=== PATIENT | female | born 1955 | race Caucasian/White ===

== ENCOUNTER 2017-04-24 20:30 | Outpatient (CLI) | payer BC | END 2017-04-24 20:31 | disposition home or self-care (01) | LOC: SLEEPLAB 20:30 | PROVIDERS: ATTEND Internal Medicine Critical Care Medicine | DX: G47.33 Obstructive sleep apnea (adult) (pediatric) (principal); I11.0 Hypertensive heart disease with heart failure; I50.9 Heart failure, unspecified; K21.9 Gastro-esophageal reflux disease without esophagitis; F41.8 Other specified anxiety disorders; G31.84 Mild cognitive impairment of uncertain or unknown etiology; R35.1 Nocturia; R06.83 Snoring; R53.83 Other fatigue | CPT/HCPCS: 95811 ==

== ENCOUNTER 2017-09-27 14:30 | Outpatient (CLI) | payer BC ==
--- NOTE | 2017-09-27 16:25 | MRI ---
BRAIN MRI WITH AND WITHOUT CONTRAST: Date: 09/27/17 HISTORY: Headaches. Cluster headaches. COMPARISON: None. TECHNIQUE: Brain MRI is performed with and without intravenous Gadolinium administration. Multisequential, multi planar imaging is performed. FINDINGS: No hemorrhage on the axial gradient echo sequence. No parenchymal mass, mass effect, or midline shift. Brain volume is age-appropriate. Cortical pimentel-wh ite matter differentiation is preserved. Ventricles and sulci are patent and symmetric. Central arterial flow-voids are maintained. Absent restricted diffusion. T2 and FLAIR white matter hyperintensities due to chronic small vessel ischemic changes are noted. Note is made of a partially empty sella. Adequate aeration of the sinuses and mastoid air cells. Calvarium has a normal T1 marrow signal intensity. Midline brain parenchymal structures are unremarka ble. No pathologic enhancement of the brain parenchyma. IMPRESSION: Unremarkable pre and postcontrast brain MRI. POS: UBALDO
== END 2017-09-27 14:31 | disposition home or self-care (01) ==
LOC: TBSIIMAG 14:30
PROVIDERS: ATTEND Surgery
DX: R51 Headache (principal)
CPT/HCPCS: 70553; 82565

== ENCOUNTER 2017-11-29 19:21 | Emergency (ER) | payer BC | END 2017-11-29 20:16 | disposition home or self-care (01) | LOC: ERS 19:21 | DX: M79.81 Nontraumatic hematoma of soft tissue (principal); E03.9 Hypothyroidism, unspecified; I10 Essential (primary) hypertension; F32.9 Major depressive disorder, single episode, unspecified | CPT/HCPCS: 99284 ==

== ENCOUNTER 2020-09-07 15:06 | Inpatient (IN) | payer BC ==
[~2020-09-07 15:06] MED LIST: Iopamidol-370 76% 500 ML 1 ML ONE
[2020-09-07] MEDS ORDERED: Diltiazem 125 MG/25 ML ONE (15:22)
--- NOTE | 2020-09-07 15:57 | RAD ---
EXAM: Portable chest PROVIDED CLINICAL HISTORY: Palpitations COMPARISON: 06/11/2016 FINDINGS: Cardiac and mediastinal silhouette is within normal limits. No focal consolidation, pleural fluid or pneumothorax evident. IMPRESSION: No evidence for an acute cardiopulmonary process.
[2020-09-07 16:19] LABS: #Eosinphils 0.1 thou/uL (0.0-0.7); #Lymphocytes 1.8 thou/uL (1.20-3.40); #Monocytes 0.6 thou/uL (0.11-0.59); #Neutrophils 4.3 thou/uL (1.40-6.50); %Basophils 0.7 % (0.0-1.0); %Eosinophils 1.6 % (0.0-10.0); %Lymphocytes 25.7 % (21.0-51.0); %Monocytes 9.3 % (0.0-10.0); %Neutrophils 62.7 % (42.0-75.0); Hemoglobin 13.7 g/dL (12.0-16.0); Mean Corpuscular HGB CONC 34.8 g/dL (32.0-36.0); Mean Corpuscular Hemoglobin 30.5 pg (27.0-31.0); Mean Corpuscular Volume 87.6 fL (78.0-98.0); Mean Platelet Volume 8.4 fL (7.4-10.4); Platelet Count 275 thou/uL (130-400); RBC Distribution Width 12.4 % (11.5-14.5); Red Blood Cell (RBC) Count 4.49 mill/uL (4.20-5.40); White Blood Cell (WBC) Count 6.9 thou/uL (4.8-10.8)
[2020-09-07] MEDS ORDERED: Enoxaparin Sodium 100 MG/ML SYRINGE ONE (16:19)
[2020-09-07 16:41] LABS: ALT (SGPT) 20 U/L (8-55); AST (SGOT) 18 U/L (5-34); Albumin 4.3 g/dL (3.4-4.8); Alkaline Phosphatase 66 U/L (40-110); Anion Gap 13 mmol/L (10-20); BUN (Urea Nitrogen) 11 mg/dL (9.8-20.1); Bilirubin, Total 0.3 mg/dL (0.2-1.2); CK (CPK) 49 U/L (29-168); Calc. Creatinine Clearance 0 mL/min (70-130); Calcium 9.4 mg/dL (7.8-10.44); Carbon Dioxide 24 mmol/L (23-31); Chloride 101 mmol/L (98-107); Globulin 3.1 g/dL (2.4-3.5); Glucose 98 mg/dL (80-115); Potassium 4.4 mmol/L (3.5-5.1); Protein, Total 7.4 g/dL (5.8-8.1); Sodium 134 mmol/L (136-145)
--- NOTE | 2020-09-07 17:19 | PDOC.HHP ---
Hospitalist HPI Heart Palpitations History of Present Illness: PCP: Dr. Morales The patient is a 65-year-old female with a past medical history significant for diastolic CHF (secondary to chemotherapy), left breast cancer (chemotherapy 6 years ago), hypothyroidism, hypertension, DAWOOD (on home CPAP), GERD and depression that presents to the emergency department with above complaint. The patient reports having heart palpitations for the past several months. Recently, she wore a 24-hour Holter monitor, which recorded no arrhythmias at that time. She reports that she has the feeling of her heart fluttering several times a month. She reports it mostly comes when she bends over. She reports developing heart palpitations and heart fluttering yesterday afternoon around 4 PM while bending over to pick up man a pot while doing some gardening. She reported some associated shortness of breath and dizziness. She wears a CPAP at home and reports unusually large amount of apneic episodes, reporting 13 episodes per hour. She denies any cough or hemoptysis. She has no history of COPD/asthma. No history of DVT/PE. Her dizziness, she reports is intermittent and feels like she is going to "pass out". She denies any headache, vision changes, difficulty speaking or focal motor deficits to her extremities. She did receive her first Covid vaccination this past Wednesday, otherwise no change in her medications. No recent fever/illness. She denies any chest pain or swelling to her lower extremities. Denies any abdominal pain, nausea, vomiting, diarrhea. Denies any dysuria or hematuria. ED Course: VITAL SIGNS Sat Sep 07, 2020 15:07 BROCK Charles Dannette BP: 136/75, Pulse: 113, Resp: 19, Temp: 98.1 (Oral), Pain: 9, O2 sat: 97 on (Room Air), Time: 09/07/2020 15:07. VITAL SIGNS Sat Sep 07, 2020 15:33 BROCK García Ashleigh BP: 135/85, Pulse: 95, Resp: 16, Pain: 0, O2 sat: 95 on (Room Air), Time: 09/07/2020 15:33. VITAL SIGNS Sat Sep 07, 2020 15:39 BROCK García Ashleigh BP: 118/73, MAP: 88, Pulse: 87, Resp: 16 (Non-Labored), Pain: 0, O2 sat: 95 on (Room Air), Time: 09/07/2020 15:39. VITAL SIGNS Sat Sep 07, 2020 16:43 BROCK García, [facility] BP: 106/68, Pulse: 94, Resp: 16, Pain: 0, O2 sat: 98 on (Room Air), Time: 09/07/2020 16:43. EKG atrial fibrillation with RVR, heart rate 130s CXR no acute process CTA pending. Initial troponin 0.026, BNP 266 PT 12.1, INR 0.9 CMP and CBC unremarkable Lovenox 90 mg Subcutaneous Given 16:27 09/07/2020 dilTIAZem intravenous 5 mg/hr IV Piggy Back Given 15:41 09/07/2020 sodium chloride 0.9 % intravenous 1 L IV Fluid Infusion Given 15:37 09/07/2020 dilTIAZem intravenous 20 mg IV Push Given 15:35 09/07/2020 Allergies/Adverse Reactions: Allergy/AdvReac Type Severity Reaction Status Date / Time ARB-Angiotensin Receptor Allergy Mild Swollen Verified 10/01/19 20:54 Antagonist Lips GURPREET Inhibitors Allergy Verified 10/01/19 20:54 adhesive Allergy Verified 10/01/19 20:54 amlodipine Allergy Verified 10/01/19 20:54 codeine Allergy HALLUCINATI Verified 10/01/19 20:54 ON hydrochlorothiazide Allergy Verified 10/01/19 20:54 hydrocodone Allergy HALLUCINATI Verified 10/01/19 20:54 ON Latex, Natural Rubber Allergy Verified 10/01/19 20:54 monosodium glutamate Allergy Verified 10/01/19 20:54 paclitaxel Allergy Verified 10/01/19 20:54 trastuzumab [From Herceptin] Allergy Verified 10/01/19 20:54 Home Medications: Medication Instructions Recorded Confirmed Type Anastrozole 1 mg PO DAILY 12/27/13 01/25/16 History Carvedilol [Coreg] 25 mg PO BID 12/27/13 01/25/16 History Hydrocortisone 5 mg PO QAM 12/27/13 01/25/16 History Isosorbide Mononitrate [Isosorbide 30 mg PO HS 12/27/13 01/25/16 History Mononitrate ER] Levocetirizine Dihydrochloride 5 mg PO HS 12/27/13 01/25/16 History Pantoprazole [Protonix] 40 mg PO DAILY 12/27/13 01/25/16 History Thyroid [[place] Thyroid] 60 mg PO BID 12/27/13 01/25/16 History Furosemide [Lasix] 40 mg PO DAILY PRN 12/28/13 01/25/16 History Potassium Chloride 20 meq PO DAILY PRN 12/28/13 01/25/16 History Aspirin 325 mg PO BID 01/22/16 01/25/16 History Fluticasone Propionate [Flonase 1 spray EA NARE HS 01/22/16 01/25/16 History Nasal Vance] Ipratropium David [Ipratropium 1 spray EA NARE BID PRN 01/22/16 01/25/16 History David 0.03% Nasal Vance] buPROPion HCl [Wellbutrin] 100 mg PO HS 01/22/16 01/25/16 History guaiFENesin ER [Mucinex] 400 mg PO QID 01/22/16 01/25/16 History hydrALAZINE [Apresoline] 25 mg PO TID PRN 01/22/16 01/25/16 History Ibuprofen 600 mg PO Q6H PRN 01/26/16 01/26/16 History Past History: PMH: Diastolic CHF secondary to chemotherapy, Left breast cancer status post chemotherapy 6 years ago, hypothyroidism, DAWOOD, HTN, cluster headaches, GERD, depression PSX: Left mastectomy, uterine suspension, left knee surgery, tonsillectomy, multiple breast biopsies Social history: Lives at home with her family. No history of smoking heavy alcohol intake or illicit drug use. She is independent. Family history: Contributory for diabetes and hypertension Hospitalist HPI ROS All other systems reviewed; all pertinent +/- noted in HPI/Subj Hospitalist Exam General Appearance: NAD, awake alert. negative: ill appearing Eye: PERRL, anicteric sclera ENT: normocephalic atraumatic, moist mucosa Neck: supple, no lymphadenopathy Heart: no murmur, no gallops, no rubs, normal peripheral pulses, irregular Respiratory: CTAB, no wheezes, no rales, no ronchi, normal chest expansion, no tachypnea Gastrointestinal: soft, non-tender, non-distended, normal bowel sounds, no guard ing, no rigidity Extremities: no cyanosis, no edema Skin: no rashes Neurological: cranial nerve grossly intact, no focal deficits Musculoskeletal: normal tone, normal strength Psychiatric: normal affect, A&O x 3 Hospitalist Results Result Diagrams: 09/07/20 15:18 09/07/20 15:18 Lab results: Laboratory Last Values WBC 6.9 thou/uL (4.8-10.8) 09/07/20 15:18 RBC 4.49 mill/uL (4.20-5.40) 09/07/20 15:18 Hgb 13.7 g/dL (12.0-16.0) 09/07/20 15:18 Hct 39.3 % (36.0-47.0) 09/07/20 15:18 MCV 87.6 fL (78.0-98.0) 09/07/20 15:18 MCH 30.5 pg (27.0-31.0) 09/07/20 15:18 MCHC 34.8 g/dL (32.0-36.0) 09/07/20 15:18 RDW 12.4 % (11.5-14.5) 09/07/20 15:18 Plt Count 275 thou/uL (130-400) 09/07/20 15:18 MPV 8.4 fL (7.4-10.4) 09/07/20 15:18 Neutrophils % 62.7 % (42.0-75.0) 09/07/20 15:18 Lymphocytes % 25.7 % (21.0-51.0) 09/07/20 15:18 Monocytes % 9.3 % (0.0-10.0) 09/07/20 15:18 Eosinophils % 1.6 % (0.0-10.0) 09/07/20 15:18 Basophils % 0.7 % (0.0-1.0) 09/07/20 15:18 Neutrophils # 4.3 thou/uL (1.40-6.50) 09/07/20 15:18 Lymphocytes # 1.8 thou/uL (1.20-3.40) 09/07/20 15:18 Monocytes # 0.6 thou/uL (0.11-0.59) H 09/07/20 15:18 Eosinophils # 0.1 thou/uL (0.0-0.7) 09/07/20 15:18 Basophils # 0.0 thou/uL (0.0-0.2) 09/07/20 15:18 Sodium 134 mmol/L (136-145) L 09/07/20 15:18 Potassium 4.4 mmol/L (3.5-5.1) 09/07/20 15:18 Chloride 101 mmol/L (98-107) 09/07/20 15:18 Carbon Dioxide 24 mmol/L (23-31) 09/07/20 15:18 Anion Gap 13 mmol/L (10-20) 09/07/20 15:18 BUN 11 mg/dL (9.8-20.1) 09/07/20 15:18 Creatinine 0.76 mg/dL (0.6-1.1) 09/07/20 15:18 Estimated GFR (MDRD) 77 09/07/20 15:18 Glucose 98 mg/dL (80-115) 09/07/20 15:18 Calcium 9.4 mg/dL (7.8-10.44) 09/07/20 15:18 Total Bilirubin 0.3 mg/dL (0.2-1.2) 09/07/20 15:18 AST 18 U/L (5-34) 09/07/20 15:18 ALT 20 U/L (8-55) 09/07/20 15:18 Alkaline Phosphatase 66 U/L (40-110) 09/07/20 15:18 Creatine Kinase 49 U/L (29-168) 09/07/20 15:18 Troponin I 0.026 ng/mL (< 0.028) 09/07/20 15:18 B-Natriuretic Peptide 266.7 pg/mL (0-100) H 09/07/20 15:18 Serum Total Protein 7.4 g/dL (5.8-8.1) 09/07/20 15:18 Albumin 4.3 g/dL (3.4-4.8) 09/07/20 15:18 Globulin 3.1 g/dL (2.4-3.5) 09/07/20 15:18 Albumin/Globulin Ratio 1.4 g/dL (1.2-2.2) 09/07/20 15:18 EKG Status: image reviewed by me, report reviewed by me Additional Comments: 12 lead EKG interpreted by Emergency Department Physician at time of study, 12 lead EKG shows, atrial fibrillation with rapid ventricular response, Rate (beats per minute): 134, Rapid ventricular response, Interpretation:, Conduction with, ST segments normal, T waves normal, Mcdaniels normal, Clinical impression:, dysrhythmia - atrial. Chest x-ray Status: report reviewed by me Additional Comments: IMPRESSION: No evidence for an acute cardiopulmonary process CT scan - chest Status: pending Hospitalist H&P A/P (1) Atrial fibrillation with rapid ventricular response Code(s): I48.91 - UNSPECIFIED ATRIAL FIBRILLATION Status: Acute (2) Dyspnea Code(s): R06.00 - DYSPNEA, UNSPECIFIED Status: Acute (3) CHF (congestive heart failure) Code(s): I50.9 - HEART FAILURE, UNSPECIFIED Status: Chronic (4) Breast cancer, left Code(s): C50.912 - MALIGNANT NEOPLASM OF UNSPECIFIED SITE OF LEFT FEMALE BREAST Status: Chronic (5) Hypothyroidism Code(s): E03.9 - HYPOTHYROIDISM, UNSPECIFIED Status: Chronic (6) HTN (hypertension) Code(s): I10 - ESSENTIAL (PRIMARY) HYPERTENSION Status: Chronic (7) Depression Code(s): F32.9 - MAJOR DEPRESSIVE DISORDER, SINGLE EPISODE, UNSPECIFIED Status: Chronic (8) DAWOOD (obstructive sleep apnea) Code(s): G47.33 - OBSTRUCTIVE SLEEP APNEA (ADULT) (PEDIATRIC) Status: Chronic Plan: A patient with diastolic CHF, left breast cancer status post chemotherapy, hypothyroidism, hypertension presents for heart palpitations, dyspnea and dizziness. EKG atrial fibrillation with RVR, heart rate 130s. CXR no acute process. CTA chest pending. Initial troponin 0.026, BNP 266. #Atrial fibrillation with rapid ventricular response New onset. Chads-Vasc score 3 Has bled score 2, moderate risk Given Cardizem 20 mg IVP, drip 5 mg/h in ED with rate control Continue cardizem drip 5mg/hr Continue Lovenox 1 mg/kg Echocardiogram Consult Dr. Yuan Check TSH, FLP, mag level. Trend troponins. #Dyspnea Presented no respiratory distress CXR no acute process Likely related problem #1 #CHF Chronic, diastolic dysfunction. Secondary to chemotherapy. Most recent echocardiogram in [facility] 01/24 EF 55-60%: Mild MR, mild TR Restart home dose Coreg, hydralazine, spironolactone. Order echocardiogram #Breast cancer, left Currently in remission Treated chemotherapy, last treatment 6 years ago #Hypothyroidism Check TSH. Restart home dose [place] Thyroid #HTN Presented normotensive. Restart home dose Coreg, hydralazine, spironolactone #Depression Denies SI/HI Restart home dose Wellbutrin and duloxetine. #DAWOOD Compliant with CPAP at home Set up CPAP with RT at night. No DVT prophylaxis. Protonix for GI prophylaxis. CODE STATUS full code. Discussed the case with attending physician, Dr. Macdonald, who agrees with plan of care.
[2020-09-07 17:23] LABS: INR-International Normal Ratio 0.9; PTT 30.3 sec (22.9-36.1); Prothrombin Time 12.1 sec (12.0-14.7)
[2020-09-07 17:35] LABS: Phosphorus 3.3 mg/dL (2.3-4.7)
--- NOTE | 2020-09-07 18:15 | CT ---
Exam: CT angiogram of the chest HISTORY: Congestive heart failure secondary to chemotherapy. Breast cancer. COMPARISON: 01/25/2016 TECHNIQUE: CT angiogram of the chest is performed in the axial plane. Three-dimensional reformatted i mages are submitted for interpretation FINDINGS: Mediastinum: No mass, lymphadenopathy or hematoma. Heart: Normal size. No significant pericardial fluid. Aorta: Limited evaluation of the aorta due to lack of adequate contrast desiccation. Upper solid abdominal viscera: No abnormality enhancement. Trachea and central bronchi: Patent Pleural spaces: No effusion Lung parenchyma: No mass, or consolidation. Calcified granuloma in the right lower lobe. Pneumothorax: None Osseous structures: There are no lytic or blastic lesions in the osseous structures Additional findings: Findings compatible with left mastectomy. Pulmonary arteries: Adequate contrast opacification pulmonary arterial system to the level of segment al arteries. No filling defect to suggest pulmonary embolism IMPRESSION: 1. No evidence of pulmonary artery embolism to the level of the segmental arteries.
[2020-09-07] MEDS ORDERED: hydrALAZINE 25 MG TAB PO PRN (18:21)
[2020-09-07] MEDS ORDERED: Ondansetron PF 4 MG/2 ML Vial IVP PRN (18:25)
[2020-09-07] MEDS ORDERED: Calcium Carbonate 500 MG ChewTAB PO PRN (18:25)
[2020-09-07] MEDS ORDERED: Ondansetron ODT 4 MG TAB PO PRN (18:25)
[2020-09-07] MEDS ORDERED: Acetaminophen 325 MG TAB PO PRN (18:25)
[2020-09-07] MEDS ORDERED: Diltiazem 125 MG in Sodium Chloride 0.9% 100 ML IVPB SCH (19:30)
[2020-09-07] MEDS ORDERED: Magnesium 2 GM/50 ML 2 GM in Premix Bag 1 BAG IVPB SCH (19:30)
[2020-09-07] MEDS ORDERED: Potassium Bicarbonate/Cit Ac 20 MEQ TAB PO PRN (20:37)
[2020-09-07 20:44] LABS: Troponin I Less than 0.010 ng/mL (< 0.028)
[2020-09-07] MEDS ORDERED: Thyroid 60 MG TAB PO SCH (21:00)
[2020-09-07] MEDS ORDERED: buPROPion HCl 100 MG TAB PO SCH (21:00)
[2020-09-07] MEDS: Carvedilol 25 MG TAB PO SCH (22:38)
[2020-09-07 23:07] LABS: Troponin I 0.018 ng/mL (< 0.028)
[2020-09-07] MEDS ORDERED: Spironolactone 25 MG TAB PO PRN (23:35)
[2020-09-07 23:39] VITALS: BMI 30.2
[2020-09-07] MEDS ORDERED: Enoxaparin Sodium 100 MG/ML SYRINGE SC SCH (23:59)
[2020-09-08 01:38] LABS: SARS-CoV-2 PCR by NAA Not Detected (NotDetected)
[2020-09-08] MEDS ORDERED: Enoxaparin Sodium 100 MG/ML SYRINGE SC SCH (04:00)
[2020-09-08 07:20] LABS: #Eosinphils 0.1 thou/uL (0.0-0.7); #Lymphocytes 1.9 thou/uL (1.20-3.40); #Monocytes 0.5 thou/uL (0.11-0.59); #Neutrophils 2.1 thou/uL (1.40-6.50); %Basophils 0.5 % (0.0-1.0); %Eosinophils 2.4 % (0.0-10.0); %Lymphocytes 41.8 % (21.0-51.0); %Monocytes 10.3 % (0.0-10.0); %Neutrophils 45.1 % (42.0-75.0); Hemoglobin 12.8 g/dL (12.0-16.0); Mean Corpuscular HGB CONC 33.8 g/dL (32.0-36.0); Mean Corpuscular Hemoglobin 29.6 pg (27.0-31.0); Mean Corpuscular Volume 87.7 fL (78.0-98.0); Mean Platelet Volume 8.1 fL (7.4-10.4); Platelet Count 221 thou/uL (130-400); RBC Distribution Width 12.4 % (11.5-14.5); Red Blood Cell (RBC) Count 4.31 mill/uL (4.20-5.40); White Blood Cell (WBC) Count 4.6 thou/uL (4.8-10.8)
[2020-09-08 07:32] LABS: Anion Gap 11 mmol/L (10-20); BUN (Urea Nitrogen) 11 mg/dL (9.8-20.1); Calc. Creatinine Clearance 108 mL/min (70-130); Calcium 9.1 mg/dL (7.8-10.44); Carbon Dioxide 27 mmol/L (23-31); Cardiac Risk 3.6 (Less than 4.5); Chloride 107 mmol/L (98-107); Cholesterol 131 mg/dl (< 200 Desired); Glucose 112 mg/dL (80-115); HDL Cholesterol 36 mg/dL (>60 Neg Risk); LDL Cholesterol, Calculated 72 mg/dL; Potassium 3.8 mmol/L (3.5-5.1); Sodium 141 mmol/L (136-145); Triglycerides 117 mg/dL (Less than 150)
[2020-09-08] MEDS ORDERED: Loratadine 10 MG TAB PO PRN (08:18)
[2020-09-08] MEDS ORDERED: Zolpidem Tartrate 5 MG TAB PO PRN (08:18)
[2020-09-08] MEDS ORDERED: GUAIFENESIN SF SOLN 200 MG/10 ML UDCUP PO PRN (08:18)
[2020-09-08] MEDS ORDERED: Cepastat Lozenges 1 LOZ PO PRN (08:18)
[2020-09-08] MEDS ORDERED: Senokot S 8.6-50 MG TAB PO PRN (08:18)
[2020-09-08] MEDS ORDERED: Loperamide HCl 2 MG CAP PO PRN (08:18)
[2020-09-08] MEDS ORDERED: Bisacodyl 5 MG TAB PO PRN (08:18)
[2020-09-08] MEDS ORDERED: Sodium Chloride 0.65% Nasal 44 ML BOT EA NARE PRN (08:18)
[2020-09-08] MEDS ORDERED: Labetalol HCl 100 MG/20 ML VIAL SLOW IVP PRN (08:18)
[2020-09-08 08:52] LABS: Free T4 (Free Thyroxine) 0.97 ng/dL (0.70-1.48)
[2020-09-08] MEDS ORDERED: Aspirin Chewable 81 MG TAB PO SCH (09:00)
[2020-09-08] MEDS ORDERED: Thyroid 30 MG TAB PO SCH (09:00)
[2020-09-08] MEDS: Aspirin 81 mg Enteric Coated Tablet PO SCH (10:00)
[2020-09-08] MEDS: DULoxetine 30 MG CAP PO SCH (10:01)
[2020-09-08] MEDS: Carvedilol 25 MG TAB PO SCH ×2 (10:01→22:06)
[2020-09-08] MEDS: Hydrocortisone 10 mg Tablet PO SCH (10:02)
[2020-09-08] MEDS: Ipratropium Bromide 0.03% Nasal Inhaler 30 ml Bottle EA NARE SCH ×2 (10:04→22:10)
[2020-09-08] MEDS ORDERED: buPROPion HCl 100 MG TAB PO SCH (11:00)
--- NOTE | 2020-09-08 11:34 | PDOC.HOSPP ---
- Subjective Encounter Date: 09/08/20 Encounter Time: 09:40 Subjective: Patient seen and examined. No new complaints. No overnight events - Objective Vital Signs & Weight: Vital Signs (12 hours) Temp Pulse Resp BP BP BP Pulse Ox 09/08/20 11:15 97.8 F 95 21 H 117/66 97 09/08/20 07:25 97.8 F 84 20 97/58 L 96 09/08/20 04:00 98.6 F 101 H 24 H 101/57 L 97 09/08/20 00:46 96 Weight Weight 201 lb 1.6 oz I&O: 09/07/20 09/08/20 09/09/20 06:59 06:59 06:59 Intake Total 318.4 Output Total 1200 Balance -881.6 Result Diagrams: 09/08/20 06:41 09/08/20 06:41 EKG Reviewed by me: Yes Hospitalist ROS - Review of Systems ENT: denies: ear pain, ear discharge, nose pain, nose discharge, nose congestion, mouth pain, mouth swelling, throat pain, throat swelling, other Respiratory: denies: cough, dry, shortness of breath, hemoptysis, SOB with excertion, pleuritic pain, sputum, wheezing, other Cardiovascular: denies: chest pain, palpitations, orthopnea, paroxysmal noc. dyspnea, edema, light headedness, other Gastrointestinal: denies: nausea, vomiting, abdominal pain, diarrhea, constipation, melena, hematochezia, other Genitourinary: denies: dysuria, frequency, incontinence, hematuria, retention, other Musculoskeletal: denies: neck pain, shoulder pain, arm pain, back pain, hand pain, leg pain, foot pain, other - Medication Medications: Active Medications Generic Name Dose Route Start Last Admin Trade Name Freq PRN Reason Stop Dose Admin Aspirin 81 mg 09/08/20 09:00 09/08/20 10:00 Aspirin 81 Mg Enteric Coated Tablet PO 81 mg DAILY KELLEE Administration Calcium Carbonate 1,000 mg 09/07/20 18:25 09/07/20 23:56 Calcium Carbonate 500 Mg Chewtab PO 1,000 mg Q4H PRN Administration Heartburn or Indigestion Carvedilol 25 mg 09/07/20 21:00 09/08/20 10:01 Carvedilol 25 Mg Tab PO 25 mg BID KELLEE Administration Duloxetine HCl 30 mg 09/08/20 09:00 09/08/20 10:01 Duloxetine 30 Mg Cap PO 30 mg DAILY KELLEE Administration Hydrocortisone 2.5 mg 09/08/20 09:00 09/08/20 10:02 Hydrocortisone 10 Mg Tablet PO 2.5 mg QAM KELLEE Administration Ipratropium [place] 0 ml 09/08/20 09:00 09/08/20 10:04 Ipratropium [place] 0.03% Nasal Inhaler 30 Ml Bottle EA NARE 4 spr BID KELLEE Administration Pantoprazole Sodium 40 mg 09/08/20 09:00 09/08/20 10:04 Pantoprazole 40 Mg Tab PO 40 mg DAILY KELLEE Administration Hospitalist Exam Vitals: Vital Signs (12 hours) Temp Pulse Resp BP BP BP Pulse Ox 09/08/20 11:15 97.8 F 95 21 H 117/66 97 09/08/20 07:25 97.8 F 84 20 97/58 L 96 09/08/20 04:00 98.6 F 101 H 24 H 101/57 L 97 09/08/20 00:46 96 Weight Weight 201 lb 1.6 oz General Appearance: NAD, awake alert Eye: PERRL, anicteric sclera ENT: normocephalic atraumatic, no oropharyngeal lesions Neck: symmetric, no JVD, no thyromegaly Heart: no murmur, no gallops, no rubs, irregular Respiratory: no wheezes, no rales, no ronchi Gastrointestinal: soft, non-tender, non-distended, normal bowel sounds Gastrointestinal - other findings: Obesity noted Extremities: no clubbing, no edema Skin: normal turgor, no lesions Neurological: no focal deficits Musculoskeletal: normal tone, normal strength Psychiatric: normal affect, normal behavior Hosp A/P (1) Atrial fibrillation with rapid ventricular response Code(s): I48.91 - UNSPECIFIED ATRIAL FIBRILLATION Status: Acute (2) Breast cancer, left Code(s): C50.912 - MALIGNANT NEOPLASM OF UNSPECIFIED SITE OF LEFT FEMALE BREAST Status: Chronic (3) HTN (hypertension) Code(s): I10 - ESSENTIAL (PRIMARY) HYPERTENSION Status: Chronic (4) Hypothyroidism Code(s): E03.9 - HYPOTHYROIDISM, UNSPECIFIED Status: Chronic (5) DAWOOD (obstructive sleep apnea) Code(s): G47.33 - OBSTRUCTIVE SLEEP APNEA (ADULT) (PEDIATRIC) Status: Chronic (6) Anxiety and depression Code(s): F41.9 - ANXIETY DISORDER, UNSPECIFIED; F32.9 - MAJOR DEPRESSIVE DISORDER, SINGLE EPISODE, UNSPECIFIED Status: Chronic (7) Obesity (BMI 30-39.9) Code(s): E66.9 - OBESITY, UNSPECIFIED Status: Chronic (8) CHF (congestive heart failure) Code(s): I50.9 - HEART FAILURE, UNSPECIFIED Status: Chronic Qualifiers: Heart failure type: diastolic Heart failure chronicity: chronic Qualified Code(s): I50.32 - Chronic diastolic (congestive) heart failure - Plan old records reviewed/req Continue Cardizem drip, currently rate is under control, Continue Lovenox 1 mg/kg, long-term anticoagulation will defer to cardiology Continue aspirin I have reconciled her home medication Echocardiography done and result is pending We will repeat labs tomorrow Patient has low TSH but her free T3 and free T4 normal, will hold on [place] Thyroid for now while in hospital,
--- NOTE | 2020-09-08 17:44 | CON ---
DATE OF CONSULTATION: 09/08/2020 REASON FOR CONSULTATION: Atrial fibrillation with RVR. PRIMARY BIRD CAGE ASSEMBLER: Grayson Yuan MD HISTORY OF PRESENT ILLNESS: Ms. Recinos is a very pleasant 65-year-old white female, who comes to the hospital for palpitations. She was seen in the ER for this and was found to be in atrial fibrillation and RVR. She was started on a diltiazem drip. She has been better rate control since, but she remains in atrial fibrillation. 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 She has had a left breast mastectomy from this. She had normalization of her EF. It was as low as 40%. She otherwise has no other issues at this time. PAST MEDICAL HISTORY: 1. History of systolic dysfunction secondary to chemotherapy with normalized EF. 2. Left breast carcinoma, status post mastectomy. 3. Hypothyroidism. 4. Sleep apnea. 5. Hypertension. 6. Cluster headaches. 7. GERD. 8. Anxiety and depression. PAST SURGICAL HISTORY: 1. Left mastectomy. 2. Uterine suspension. 3. Left knee surgery. 4. Tonsillectomy. 5. Multiple breast biopsies. OUTPATIENT MEDICATIONS: 1. Anastrozole. 2. Carvedilol 25 mg b.i.d. 3. Hydrocortisone. 4. Imdur 30 mg at bedtime. 5. Levocetirizine 5 mg at bedtime. 6. Protonix 40 mg a day. 7. [place] thyroid 60 mg b.i.d. 8. Lasix 40 mg as needed. 9. Potassium chloride 20 mEq as needed with Lasix. 10. Aspirin 325 a day. 11. Flonase nasal spray. 12. Ipratropium bromide nasal spray. 13. Wellbutrin. 14. Guaifenesin. 15. Hydralazine 25 mg p.o. t.i.d. p.r.n. for hypertension. 16. Ibuprofen p.r.n. ALLERGIES: 1. ARBS, SWOLLEN LIPS. 2. GURPREET INHIBITORS. 3. ADHESIVE TAPE. 4. AMLODIPINE. 5. CODEINE, HALLUCINATIONS. 6. HYDROCHLOROTHIAZIDE. 7. HYDROCODONE, HALLUCINATIONS. 8. LATEX. 9. MONOSODIUM GLUTAMATE. 10. PACLITAXEL. 11. TRASTUZUMAB. SOCIAL HISTORY: No alcohol, tobacco, or drugs. FAMILY HISTORY: Noncontributory. REVIEW OF SYSTEMS: A 12-point review of systems was done and was all negative unless in the history of present illness. PHYSICAL EXAMINATION: VITAL SIGNS: Temperature 97.8, pulse 95, respiratory rate 21, saturating 97% on room air, blood pressure 117/66. GENERAL: Awake, alert, oriented x3. No distress. HEENT: Normocephalic, atraumatic. NECK: Supple. LUNGS: Clear. CARDIOVASCULAR: Irregularly irregular heart rate in the upper 90s, low 100s. No murmurs or rubs. ABDOMEN: Soft. Positive bowel sounds. EXTREMITIES: No edema. SKIN: Warm and dry. LABORATORY AND DIAGNOSTIC DATA: Laboratory work was reviewed. White count of 6, hemoglobin of 13, hematocrit of 39, platelet count of 275. Coags were unremarkable. Chemistries were unremarkable. Troponins were negative x3. TSH was low at 0.004, but free T3 was 3.15 and free T4 was 0.97, which were both considered to be within normal limits. COVID-19 PCR serology was not detected. CT of the chest showed no evidence of pulmonary embolism with no mass or consolidation in the lung parenchyma. Echocardiogram done earlier today showed an EF of 50% to 55%, in atrial fibrillation with moderately dilated left atrium. ASSESSMENT: 1. Paroxysmal atrial fibrillation. 2. History of nonischemic cardiomyopathy with normalized EF. 3. History of breast cancer, in remission. 4. Hypothyroidism with what appears to be adequate levels. PLAN: 1. We will start her on flecainide for antiarrhythmic therapy at 50 mg twice a day. We will continue full dose Lovenox and will switch her to Eliquis at 5 mg twice a day tomorrow. 2. We will plan on doing a [place] cardioversion tomorrow morning. Thank you for letting us to participate in the care of your patient. We will follow. Job ID: [id number]
[2020-09-08] MEDS ORDERED: Thyroid 60 MG TAB PO SCH (21:00)
[2020-09-08] MEDS: Enoxaparin Sodium 100 MG/ML SYRINGE SC SCH (22:06)
[2020-09-08] MEDS: Flecainide 50 MG TAB PO SCH (22:06)
[2020-09-09 04:39] LABS: #Eosinphils 0.2 thou/uL (0.0-0.7); #Lymphocytes 2.1 thou/uL (1.20-3.40); #Monocytes 0.6 thou/uL (0.11-0.59); #Neutrophils 2.9 thou/uL (1.40-6.50); %Basophils 0.5 % (0.0-1.0); %Lymphocytes 36.2 % (21.0-51.0); %Monocytes 10.1 % (0.0-10.0); %Neutrophils 50.1 % (42.0-75.0); Hemoglobin 12.7 g/dL (12.0-16.0); Mean Corpuscular HGB CONC 33.3 g/dL (32.0-36.0); Mean Corpuscular Hemoglobin 29.2 pg (27.0-31.0); Mean Corpuscular Volume 87.8 fL (78.0-98.0); Mean Platelet Volume 8.3 fL (7.4-10.4); Platelet Count 222 thou/uL (130-400); RBC Distribution Width 12.3 % (11.5-14.5); Red Blood Cell (RBC) Count 4.36 mill/uL (4.20-5.40); White Blood Cell (WBC) Count 5.8 thou/uL (4.8-10.8)
[2020-09-09 04:56] LABS: Anion Gap 12 mmol/L (10-20); BUN (Urea Nitrogen) 11 mg/dL (9.8-20.1); Calc. Creatinine Clearance 109 mL/min (70-130); Carbon Dioxide 27 mmol/L (23-31); Chloride 106 mmol/L (98-107); Glucose 109 mg/dL (80-115); Potassium 4.3 mmol/L (3.5-5.1); Sodium 141 mmol/L (136-145)
[2020-09-09] MEDS: Ipratropium Bromide 0.03% Nasal Inhaler 30 ml Bottle EA NARE SCH ×2 (06:06→17:20)
[2020-09-09] MEDS: Carvedilol 25 MG TAB PO SCH ×2 (09:34→20:22)
[2020-09-09] MEDS: buPROPion HCl 100 MG TAB PO SCH (09:34)
[2020-09-09] MEDS: Aspirin 81 mg Enteric Coated Tablet PO SCH (09:34)
[2020-09-09] MEDS: DULoxetine 30 MG CAP PO SCH (09:35)
[2020-09-09] MEDS: Enoxaparin Sodium 100 MG/ML SYRINGE SC SCH ×2 (09:35→20:21)
[2020-09-09] MEDS: Flecainide 50 MG TAB PO SCH ×2 (09:36→20:22)
[2020-09-09] MEDS: Hydrocortisone 10 mg Tablet PO SCH (09:36)
[2020-09-09] MEDS ORDERED: PROPOFOL 40 ML ONE (10:42)
--- NOTE | 2020-09-09 13:28 | PDOC.HOSPP ---
- Subjective Encounter Date: 09/09/20 Encounter Time: 11:00 Subjective: Patient seen and examined. No new complaints. No overnight events - Objective Vital Signs & Weight: Vital Signs (12 hours) Temp Pulse Resp BP BP BP Pulse Ox 09/09/20 11:45 97.6 F 72 20 121/81 98 09/09/20 07:10 97.6 F 87 20 105/58 L 98 09/09/20 03:23 97.8 F 92 20 94/57 L 98 Weight Weight 195 lb 4.8 oz I&O: 09/08/20 09/09/20 09/10/20 06:59 06:59 06:59 Intake Total 318.4 1446.7 Output Total 1200 1800 Balance -881.6 -353.3 Result Diagrams: 09/09/20 04:11 09/09/20 04:11 EKG Reviewed by me: Yes Hospitalist ROS - Review of Systems ENT: denies: ear pain, ear discharge, nose pain, nose discharge, nose congestion, mouth pain, mouth swelling, throat pain, throat swelling, other Respiratory: denies: cough, dry, shortness of breath, hemoptysis, SOB with excertion, pleuritic pain, sputum, wheezing, other Cardiovascular: denies: chest pain, palpitations, orthopnea, paroxysmal noc. dyspnea, edema, light headedness, other Gastrointestinal: denies: nausea, vomiting, abdominal pain, diarrhea, constipation, melena, hematochezia, other Genitourinary: denies: dysuria, frequency, incontinence, hematuria, retention, other - Medication Medications: Active Medications Generic Name Dose Route Start Last Admin Trade Name Andraeq PRN Reason Stop Dose Admin Aspirin 81 mg 09/08/20 09:00 09/09/20 09:34 Aspirin 81 Mg Enteric Coated Tablet PO 81 mg DAILY KELLEE Administration Bupropion HCl 100 mg 09/09/20 09:00 09/09/20 09:34 Bupropion Hcl 100 Mg Tab PO 100 mg QAM KELLEE Administration Calcium Carbonate 1,000 mg 09/07/20 18:25 09/07/20 23:56 Calcium Carbonate 500 Mg Chewtab PO 1,000 mg Q4H PRN Administration Heartburn or Indigestion Carvedilol 25 mg 09/07/20 21:00 09/09/20 09:34 Carvedilol 25 Mg Tab PO 25 mg BID KELLEE Administration Duloxetine HCl 30 mg 09/08/20 09:00 09/09/20 09:35 Duloxetine 30 Mg Cap PO 30 mg DAILY KELLEE Administration Enoxaparin Sodium 90 mg 09/08/20 21:00 09/09/20 09:35 Enoxaparin Sodium 100 Mg/Ml Syringe SC 90 mg 0900,2100 KELLEE Administration Flecainide Acetate 50 mg 09/08/20 21:00 09/09/20 09:36 Flecainide 50 Mg Tab PO 50 mg Q12HR KELLEE Administration Hydrocortisone 2.5 mg 09/08/20 09:00 09/09/20 09:36 Hydrocortisone 10 Mg Tablet PO 2.5 mg QAM KELLEE Administration Diltiazem HCl 125 mg/ Sodium 125 mls @ 5 mls/hr 09/07/20 19:30 09/08/20 16:56 Chloride IVPB 125 mls INF KELLEE Administration Protocol 5 MG/HR Ipratropium [place] 0 ml 09/08/20 09:00 09/09/20 06:06 Ipratropium [place] 0.03% Nasal Inhaler 30 Ml Bottle EA NARE 4 spr BID KELLEE Administration Pantoprazole Sodium 40 mg 09/08/20 09:00 09/09/20 09:37 Pantoprazole 40 Mg Tab PO 40 mg DAILY KELLEE Administration Hospitalist Exam Vitals: Vital Signs (12 hours) Temp Pulse Resp BP BP BP Pulse Ox 09/09/20 11:45 97.6 F 72 20 121/81 98 09/09/20 07:10 97.6 F 87 20 105/58 L 98 09/09/20 03:23 97.8 F 92 20 94/57 L 98 Weight Weight 195 lb 4.8 oz General Appearance: NAD, awake alert Eye: PERRL, anicteric sclera ENT: normocephalic atraumatic, no oropharyngeal lesions Neck: supple, symmetric, no JVD, no thyromegaly Heart: no murmur, no gallops, no rubs Respiratory: no wheezes, no rales, no ronchi Gastrointestinal: soft, non-tender, non-distended, normal bowel sounds Extremities: no cyanosis, no clubbing Skin: normal turgor, no lesions Neurological: no focal deficits Musculoskeletal: normal tone, normal strength Psychiatric: normal affect, normal behavior Hosp A/P (1) Atrial fibrillation with rapid ventricular response Code(s): I48.91 - UNSPECIFIED ATRIAL FIBRILLATION Status: Acute (2) Breast cancer, left Code(s): C50.912 - MALIGNANT NEOPLASM OF UNSPECIFIED SITE OF LEFT FEMALE BREAST Status: Chronic (3) HTN (hypertension) Code(s): I10 - ESSENTIAL (PRIMARY) HYPERTENSION Status: Chronic (4) Hypothyroidism Code(s): E03.9 - HYPOTHYROIDISM, UNSPECIFIED Status: Chronic (5) [place] (obstructive sleep apnea) Code(s): G47.33 - OBSTRUCTIVE SLEEP APNEA (ADULT) (PEDIATRIC) Status: Chronic (6) Anxiety and depression Code(s): F41.9 - ANXIETY DISORDER, UNSPECIFIED; F32.9 - MAJOR DEPRESSIVE DISORDER, SINGLE EPISODE, UNSPECIFIED Status: Chronic (7) Obesity (BMI 30-39.9) Code(s): E66.9 - OBESITY, UNSPECIFIED Status: Chronic (8) CHF (congestive heart failure) Code(s): I50.9 - HEART FAILURE, UNSPECIFIED Status: Chronic Qualifiers: Heart failure type: diastolic Heart failure chronicity: chronic Qualified Code(s): I50.32 - Chronic diastolic (congestive) heart failure - Plan old records reviewed/req Cardiology recommendation appreciated, Continue Lovenox Plan for [place] and cardioversion On discharge Eliquis Flecainide We will monitor
--- NOTE | 2020-09-09 14:00 | PDOC.DS.DS ---
Provider Date of Admission: 09/07/20 18:20 Date of Discharge: 09/10/20 Admitting Provider: Anita Stallings MD Consultations: Cardiology Primary Care Physician: Clay Morales, Course Hospital Course: Patient was admitted on September 07, 2020, on admission patient had chest x-ray which showed no acute cardiopulmonary process, CT angiography negative for pulmonary embolism, patient had A. fib with RVR, echocardiography was done which showed EF 50 to 55%, patient was treated with Cardizem drip, cardiology was consulted, cardiology recommended to do cardioversion, patient underwent card ioversion, cardiology recommended to change medication to flecainide 50 mg twice daily, hydralazine reduced to 10 mg 3 times daily, patient will continue Eliquis and other medication, she will follow up with cardiology within a week. Cardiology cleared her for discharge, patient also wants to go home today. All new medication prescription given to her and sent to pharmacy. Resuscitation Status: 09/07/20 18:25 Resuscitation Status Routine Co-Sign Provider: Resuscitation Status: FULL: Full Resuscitation Discussed with: patient Lab Results: 09/09/20 04:11 09/09/20 04:11 Abnormal Lab Results - Last 48 hrs 09/07/20 15:18: B-Natriuretic Peptide 266.7 H 09/07/20 15:18: Monocytes # 0.6 H 09/07/20 15:18: Sodium 134 L 09/07/20 15:18: TSH 3rd Generation 0.0041 L 09/08/20 06:41: WBC 4.6 L, Monocytes % 10.3 H 09/09/20 04:11: Monocytes % 10.1 H, Monocytes # 0.6 H Vitals: Vital Signs (12 hours) Temp Pulse Resp BP BP BP Pulse Ox 09/09/20 11:45 97.6 F 72 20 121/81 98 09/09/20 07:10 97.6 F 87 20 105/58 L 98 09/09/20 03:23 97.8 F 92 20 94/57 L 98 Weight Weight 195 lb 4.8 oz Physical Exam: The patient was seen and examined on the day of discharge. General Appearance: NAD, awake alert Eye: PERRL, anicteric sclera ENT: normocephalic atraumatic, no oropharyngeal lesions Neck: supple, symmetric, no JVD, no thyromegaly Respiratory: no wheezes, no rales, no ronchi Cardiovascular: RRR, no murmur, no gallops, no rubs Gastrointestinal: soft, non-tender, non-distended, normal bowel sounds Extremities: no cyanosis, no clubbing, no edema Skin: normal turgor, no lesions Neurological: no focal deficits Musculoskeletal: normal tone, normal strength PSYCH: normal affect, normal behavior Problem (1) Atrial fibrillation with rapid ventricular response Code(s): I48.91 - UNSPECIFIED ATRIAL FIBRILLATION Status: Acute (2) Breast cancer, left Code(s): C50.912 - MALIGNANT NEOPLASM OF UNSPECIFIED SITE OF LEFT FEMALE BREAST Status: Chronic (3) HTN (hypertension) Code(s): I10 - ESSENTIAL (PRIMARY) HYPERTENSION Status: Chronic (4) Hypothyroidism Code(s): E03.9 - HYPOTHYROIDISM, UNSPECIFIED Status: Chronic (5) DAWOOD (obstructive sleep apnea) Code(s): G47.33 - OBSTRUCTIVE SLEEP APNEA (ADULT) (PEDIATRIC) Status: Chronic (6) Anxiety and depression Code(s): F41.9 - ANXIETY DISORDER, UNSPECIFIED; F32.9 - MAJOR DEPRESSIVE DISORDER, SINGLE EPISODE, UNSPECIFIED Status: Chronic (7) Obesity (BMI 30-39.9) Code(s): E66.9 - OBESITY, UNSPECIFIED Status: Chronic (8) CHF (congestive heart failure) Code(s): I50.9 - HEART FAILURE, UNSPECIFIED Status: Chronic Qualifiers: Heart failure type: diastolic Heart failure chronicity: chronic Qualified Code(s): I50.32 - Chronic diastolic (congestive) heart failure Plan Prescriptions: Flecainide [Tambocor] 50 mg PO Q12HR #60 tab hydrALAZINE [Apresoline] 10 mg PO TID #90 tab Apixaban [Eliquis] 5 mg PO BID #60 tablet Home Medications: Medication Instructions Recorded Confirmed Type Carvedilol [Coreg] 25 mg PO BID 12/27/13 09/07/20 History Hydrocortisone 2.5 mg PO QAM 12/27/13 09/07/20 History Pantoprazole [Protonix] 40 mg PO DAILY 12/27/13 09/07/20 History Aspirin 81 mg PO DAILY 01/22/16 09/07/20 History Ipratropium [place] [Ipratropium 2 spray EA NARE BID 01/22/16 09/07/20 History [place] 0.03% Nasal [place]] buPROPion HCl [Wellbutrin] 150 mg PO DAILY 01/22/16 09/07/20 History guaiFENesin ER [Mucinex] 400 mg PO BID PRN 01/22/16 09/07/20 History DULoxetine HCl [Cymbalta] 30 mg PO ASDIR 09/07/20 09/07/20 History Spironolactone [Aldactone] 25 mg PO PRN PRN 09/07/20 09/07/20 History Thyroid,Pork [[place] Thyroid] 60 mg PO HS 09/07/20 09/07/20 History Thyroid,Pork [[place] Thyroid] 90 mg PO DAILY 09/07/20 09/07/20 History Apixaban [Eliquis] 5 mg PO BID #60 tablet 09/09/20 Rx Flecainide [Tambocor] 50 mg PO Q12HR #60 tab 09/09/20 Rx hydrALAZINE [Apresoline] 10 mg PO TID #90 tab 09/09/20 Rx Allergies: ARB-Angiotensin Receptor Antagonist Allergy (Mild, Verified 09/07/20 21:29) Swollen Lips GURPREET Inhibitors Allergy (Verified 09/08/20 13:58) Swollen Lips PER ER ORDER adhesive Allergy (Verified 09/07/20 21:29) amlodipine Allergy (Verified 09/07/20 21:29) codeine Allergy (Verified 09/07/20 21:29) HALLUCINATION hydrochlorothiazide Allergy (Verified 09/07/20 21:29) hydrocodone Allergy (Verified 09/07/20 21:29) HALLUCINATION Latex, Natural Rubber Allergy (Verified 09/07/20 21:29) monosodium glutamate Allergy (Verified 09/07/20 21:29) paclitaxel Allergy (Verified 09/07/20 21:29) trastuzumab [From Herceptin] Allergy (Verified 09/07/20 21:29) Activity:: Activity as Tolerated Nourishment:: Heart Healthy Diet Therapies:: Not Applicable Equipment/Supplies:: Not Applicable IV Therapy:: Not Applicable Referrals: Grayson Yuan MD [Active] - 2-3 Weeks (Call the office to make an appointment.) Jonathan Morales DO [Primary Care Provider] - 7 Days (Call the office to make an appointment.) Disposition: HOME Quality CORE MEASURES:: N/A
[2020-09-09] MEDS ORDERED: DULoxetine 30 MG CAP PO SCH (21:00)
[2020-09-10] MEDS: DULoxetine 30 MG CAP PO SCH (08:36)
[2020-09-10] MEDS: Aspirin 81 mg Enteric Coated Tablet PO SCH (08:36)
[2020-09-10] MEDS: Carvedilol 25 MG TAB PO SCH (08:37)
[2020-09-10] MEDS: Flecainide 50 MG TAB PO SCH (08:37)
[2020-09-10] MEDS: buPROPion HCl 100 MG TAB PO SCH (08:37)
[2020-09-10] MEDS: Hydrocortisone 10 mg Tablet PO SCH (08:37)
[2020-09-10] MEDS: Enoxaparin Sodium 100 MG/ML SYRINGE SC SCH (08:48)
[2020-09-10 09:55] LABS: Hemoglobin 12.6 g/dL (12.0-16.0); Platelet Count 213 thou/uL (130-400)
[2020-09-10] MEDS: Ipratropium Bromide 0.03% Nasal Inhaler 30 ml Bottle EA NARE SCH (10:50)
--- NOTE | 2020-09-10 11:12 | PDOC.HOSPP ---
- Subjective Encounter Date: 09/10/20 Encounter Time: 10:00 Subjective: Patient seen and examined. No new complaints. No overnight events - Objective Vital Signs & Weight: Vital Signs (12 hours) Temp Pulse Resp BP Pulse Ox 09/10/20 03:35 98.3 F 71 16 130/80 95 Weight Weight 202 lb I&O: 09/09/20 09/10/20 09/11/20 06:59 06:59 06:59 Intake Total 1446.7 1220 Output Total 1800 200 Balance -353.3 1020 Result Diagrams: 09/10/20 09:22 09/10/20 09:22 EKG Reviewed by me: Yes Hospitalist ROS - Review of Systems ENT: denies: ear pain, ear discharge, nose pain, nose discharge, nose congestion, mouth pain, mouth swelling, throat pain, throat swelling, other Respiratory: denies: cough, dry, shortness of breath, hemoptysis, SOB with excertion, pleuritic pain, sputum, wheezing, other Cardiovascular: denies: chest pain, palpitations, orthopnea, paroxysmal noc. dyspnea, edema, light headedness, other Gastrointestinal: denies: nausea, vomiting, abdominal pain, diarrhea, constipation, melena, hematochezia, other Genitourinary: denies: dysuria, frequency, incontinence, hematuria, retention, other Musculoskeletal: denies: neck pain, shoulder pain, arm pain, back pain, hand pain, leg pain, foot pain, other - Medication Medications: Active Medications Generic Name Dose Route Start Last Admin Trade Name Freq PRN Reason Stop Dose Admin Aspirin 81 mg 09/08/20 09:00 09/10/20 08:36 Aspirin 81 Mg Enteric Coated Tablet PO 81 mg DAILY KELLEE Administration Bupropion HCl 100 mg 09/09/20 09:00 09/10/20 08:37 Bupropion Hcl 100 Mg Tab PO 100 mg QAM KELLEE Administration Calcium Carbonate 1,000 mg 09/07/20 18:25 09/07/20 23:56 Calcium Carbonate 500 Mg Chewtab PO 1,000 mg Q4H PRN Administration Heartburn or Indigestion Carvedilol 25 mg 09/07/20 21:00 09/10/20 08:37 Carvedilol 25 Mg Tab PO 25 mg BID KELLEE Administration Duloxetine HCl 30 mg 09/08/20 09:00 09/10/20 08:36 Duloxetine 30 Mg Cap PO 30 mg DAILY KELLEE Administration Duloxetine HCl 30 mg 09/09/20 21:00 09/09/20 20:22 Duloxetine 30 Mg Cap PO 30 mg Q2D@2100 KELLEE Administration Enoxaparin Sodium 90 mg 09/08/20 21:00 09/10/20 08:48 Enoxaparin Sodium 100 Mg/Ml Syringe SC Not Given 0900,2100 [facility] Flecainide Acetate 50 mg 09/08/20 21:00 09/10/20 08:37 Flecainide 50 Mg Tab PO 50 mg Q12HR KELLEE Administration Hydrocortisone 2.5 mg 09/08/20 09:00 09/10/20 08:37 Hydrocortisone 10 Mg Tablet PO 2.5 mg QAM KELLEE Administration Diltiazem HCl 125 mg/ Sodium 125 mls @ 5 mls/hr 09/07/20 19:30 09/08/20 16:56 Chloride IVPB 125 mls INF KELLEE Administration Protocol 5 MG/HR Ipratropium [place] 0 ml 09/08/20 09:00 09/10/20 10:50 Ipratropium [place] 0.03% Nasal Inhaler 30 Ml Bottle EA NARE Not Given BID KELLEE Pantoprazole Sodium 40 mg 09/08/20 09:00 09/10/20 08:37 Pantoprazole 40 Mg Tab PO 40 mg DAILY KELLEE Administration Hospitalist Exam Vitals: Vital Signs (12 hours) Temp Pulse Resp BP Pulse Ox 09/10/20 03:35 98.3 F 71 16 130/80 95 Weight Weight 202 lb General Appearance: NAD, awake alert Eye: PERRL, anicteric sclera ENT: normocephalic atraumatic, no oropharyngeal lesions Neck: supple, symmetric, no JVD, no thyromegaly Heart: RRR, no murmur, no gallops, no rubs Respiratory: no wheezes, no rales, no ronchi Gastrointestinal: soft, non-tender, non-distended, normal bowel sounds Extremities: no clubbing, no edema Skin: normal turgor, no lesions Neurological: no focal deficits Musculoskeletal: normal tone, normal strength, no muscle wasting Psychiatric: normal affect, normal behavior Hosp A/P (1) Atrial fibrillation with rapid ventricular response Code(s): I48.91 - UNSPECIFIED ATRIAL FIBRILLATION Status: Acute (2) Breast cancer, left Code(s): C50.912 - MALIGNANT NEOPLASM OF UNSPECIFIED SITE OF LEFT FEMALE BREAST Status: Chronic (3) HTN (hypertension) Code(s): I10 - ESSENTIAL (PRIMARY) HYPERTENSION Status: Chronic (4) Hypothyroidism Code(s): E03.9 - HYPOTHYROIDISM, UNSPECIFIED Status: Chronic (5) DA[place]OD (obstructive sleep apnea) Code(s): G47.33 - OBSTRUCTIVE SLEEP APNEA (ADULT) (PEDIATRIC) Status: Chronic (6) Anxiety and depression Code(s): F41.9 - ANXIETY DISORDER, UNSPECIFIED; F32.9 - MAJOR DEPRESSIVE DISORDER, SINGLE EPISODE, UNSPECIFIED Status: Chronic (7) Obesity (BMI 30-39.9) Code(s): E66.9 - OBESITY, UNSPECIFIED Status: Chronic (8) CHF (congestive heart failure) Code(s): I50.9 - HEART FAILURE, UNSPECIFIED Status: Chronic Qualifiers: Heart failure type: diastolic Heart failure chronicity: chronic Qualified Code(s): I50.32 - Chronic diastolic (congestive) heart failure - Plan old records reviewed/req Patient is medically stable for discharge today, All new medication prescription given to her and sent to her pharmacy as well, See my discharge summary
[2020-09-10 18:17] VITALS: BP 141/82; TEMP 97.4
--- NOTE | 2020-09-10 22:18 | ECHO ---
PROCEDURE: Transesophageal echocardiogram. PREPROCEDURE DIAGNOSIS: Atrial fibrillation. TECHNIQUE: Transesophageal echo was performed in preparation for cardioversion. The Anesthesiology Department provided with sedation for the patient. Please see their notes for details. After adequate sedation was achieved, the transesophageal probe was inserted into the mouth and into the esophagus. Multiplanar views were then obtained. Left ventricle is normal size with normal wall thickness. Systolic function is normal. Estimated EF at 50% to 55%. Left atrium is mildly dilated. Left atrial appendage is large with normal velocities and no evidence of mass or thrombus. Right atrium is mildly dilated. Right ventricle is normal size with normal systolic function. Aortic valve is structurally normal. No stenosis or regurgitation. Mitral valve is structurally normal. There is mild to moderate MR. No stenosis. Tricuspid valve is structurally normal. There is mild TR. Pulmonary valve is structurally normal. No significant stenosis or regurgitation. CONCLUSION: 1. Normal systolic function with EF at 50% to 55%. 2. Left atrial enlargement. 3. Left atrial appendage is widely patent with normal velocities and no evidence of mass or thrombus. 4. Mild to moderate MR. 5. Mild TR. Job ID: [id number]
--- NOTE | 2020-09-10 22:19 | CCLSPC ---
PREPROCEDURE DIAGNOSIS: Atrial fibrillation. PROCEDURE PERFORMED: Direct current synchronized cardioversion. SUMMARY: Ms. Recinos is a pleasant 65-year-old white female, who comes to the hospital for atrial fibrillation. She was brought down for a planned cardioversion. [place] cleared from any thrombus. So, once adequate anesthesia was achieved by the Anesthesiology Department, 1 single AICD shock was given in a synchronized fashion at 100 joules successfully converting her from atrial fibrillation into sinus rhythm. She patient tolerated the procedure well. RECOMMENDATIONS: 1. Continue Eliquis 5 mg b.i.d. 2. Continue flecainide 50 mg b.i.d. 3. Continue carvedilol at current dose of 25 mg b.i.d. 4. May be discharged home later today. Job ID: [id number]
== END 2020-09-10 11:30 | disposition home or self-care (01) | DRG 309 ==
LOC: ERS 15:06 → 2NO 18:20
PROVIDERS: ADMIT Internal Medicine; ATTEND Internal Medicine
PROC: 5A2204Z Restoration of Cardiac Rhythm, Single (ICD-10-PCS; principal; 2020-09-09)
DX: I48.0 Paroxysmal atrial fibrillation (principal); I50.32 Chronic diastolic (congestive) heart failure; E03.9 Hypothyroidism, unspecified; G47.33 Obstructive sleep apnea (adult) (pediatric); K21.9 Gastro-esophageal reflux disease without esophagitis; C50.912 Malignant neoplasm of unspecified site of left female breast; F32.9 Major depressive disorder, single episode, unspecified; I10 Essential (primary) hypertension; E66.9 Obesity, unspecified; F41.9 Anxiety disorder, unspecified; I42.8 Other cardiomyopathies; Z20.822 Contact with and (suspected) exposure to COVID-19; Z92.21 Personal history of antineoplastic chemotherapy; Z88.5 Allergy status to narcotic agent; Z88.8 Allergy status to other drugs, medicaments and biological substances; Z91.040 Latex allergy status; Z79.82 Long term (current) use of aspirin; Z79.899 Other long term (current) drug therapy; Z90.12 Acquired absence of left breast and nipple; Z68.30 Body mass index [BMI] 30.0-30.9, adult
CPT/HCPCS: 36415; 71045; 71275; 80048; 80053; 80061; 82550; 82565; 83735; 83880; 84100; 84439; 84443; 84481; 84484; 85014; 85018; 85025; 85049; 85610; 85730; 87635; 92960; 93005; 93010; 93306; 93312; 94760; 96365; 96366; 96372; 96376; J1650; J2704; J3475; J3490; Q9967; U0003; U0005

== ENCOUNTER 2021-03-04 17:46 | Emergency (ER) | payer BC ==
[2021-03-04] MEDS ORDERED: Metoprolol Tartrate 5 MG/5 ML VIAL ONE (18:23)
[2021-03-04 18:35] LABS: #Eosinphils 0.1 thou/uL (0.0-0.7); #Lymphocytes 1.6 thou/uL (1.20-3.40); #Monocytes 0.5 thou/uL (0.11-0.59); #Neutrophils 4.6 thou/uL (1.40-6.50); %Basophils 0.2 % (0.0-1.0); %Eosinophils 1.8 % (0.0-10.0); %Monocytes 6.8 % (0.0-10.0); %Neutrophils 67.2 % (42.0-75.0); Hemoglobin 12.6 g/dL (12.0-16.0); Mean Corpuscular HGB CONC 33.9 g/dL (32.0-36.0); Mean Corpuscular Hemoglobin 30.2 pg (27.0-31.0); Mean Corpuscular Volume 89.1 fL (78.0-98.0); Mean Platelet Volume 8.2 fL (7.4-10.4); Platelet Count 222 thou/uL (130-400); RBC Distribution Width 12.1 % (11.5-14.5); Red Blood Cell (RBC) Count 4.17 mill/uL (4.20-5.40); White Blood Cell (WBC) Count 6.8 thou/uL (4.8-10.8)
[2021-03-04 18:45] LABS: INR-International Normal Ratio 0.9; PTT 34.8 sec (22.9-36.1); Prothrombin Time 12.6 sec (12.0-14.7)
[2021-03-04 19:21] LABS: ALT (SGPT) 16 U/L (8-55); AST (SGOT) 17 U/L (5-34); Albumin 4.2 g/dL (3.4-4.8); Alkaline Phosphatase 60 U/L (40-110); Anion Gap 14 mmol/L (10-20); BUN (Urea Nitrogen) 14 mg/dL (9.8-20.1); Bilirubin, Total 0.3 mg/dL (0.2-1.2); Calc. Creatinine Clearance 0 mL/min (70-130); Calcium 9.4 mg/dL (7.8-10.44); Carbon Dioxide 25 mmol/L (23-31); Chloride 101 mmol/L (98-107); Globulin 2.7 g/dL (2.4-3.5); Glucose 116 mg/dL (80-115); Potassium 4.2 mmol/L (3.5-5.1); Protein, Total 6.9 g/dL (5.8-8.1); Sodium 136 mmol/L (136-145)
[2021-03-04] MEDS ORDERED: Flecainide 50 MG TAB PO SCH (19:30)
== END 2021-03-04 21:57 | disposition home or self-care (01) ==
LOC: ERS 17:46
DX: I48.91 Unspecified atrial fibrillation (principal); Z79.899 Other long term (current) drug therapy; Z79.82 Long term (current) use of aspirin; Z79.01 Long term (current) use of anticoagulants; E03.9 Hypothyroidism, unspecified; I10 Essential (primary) hypertension
CPT/HCPCS: 80053; 84484; 85025; 85610; 85730; 93005; 94760; 96374

== ENCOUNTER 2022-03-11 10:36 | Outpatient (CLI) | payer BC | END 2022-03-11 10:37 | disposition home or self-care (01) | LOC: TBSIIMAG 10:36 | PROVIDERS: ATTEND Neurological Surgery | DX: M47.26 Other spondylosis with radiculopathy, lumbar region (principal); M47.817 Spondylosis without myelopathy or radiculopathy, lumbosacral region | CPT/HCPCS: 72100; 72148 ==

== ENCOUNTER 2022-08-11 14:36 | Outpatient (CLI) | payer MEDICARE, BC ==
[2022-08-11 16:15] LABS: Hemoglobin 12.5 g/dL (12.0-15.5); Mean Corpuscular HGB CONC 34.1 g/dL (32.0-36.0); Mean Corpuscular Hemoglobin 29.9 pg (27.0-33.0); Mean Corpuscular Volume 87.8 fl (81.6-98.3); Mean Platelet Volume 10.2 fl (7.4-10.4); Platelet Count 245 10x3/uL (150-450); RBC Distribution Width 13.5 % (11.5-14.5); Red Blood Cell (RBC) Count 4.18 10x6/uL (3.90-5.03); White Blood Cell (WBC) Count 5.3 10x3/uL (3.5-10.5)
[2022-08-11 16:30] LABS: PTT 28.9 sec (22.0-33.0); Prothrombin Time 10.4 sec (9.5-12.1)
[2022-08-11 17:02] LABS: Anion Gap 13 mmol/L (10-20); BUN (Urea Nitrogen) 14 mg/dL (9.8-20.1); Calc. Creatinine Clearance 0 mL/min (70-130); Calcium 9.8 mg/dL (7.8-10.44); Carbon Dioxide 28 mmol/L (23-31); Chloride 101 mmol/L (98-107); Estimated GFR 82; Glucose 102 mg/dL (80-115); Potassium 4.2 mmol/L (3.5-5.1); Sodium 138 mmol/L (136-145)
== END 2022-08-11 14:37 | disposition home or self-care (01) ==
LOC: LABBT 14:36
PROVIDERS: ATTEND Internal Medicine Cardiovascular Disease
DX: Z01.812 Encounter for preprocedural laboratory examination (principal)
CPT/HCPCS: 80048; 85027; 85610; 85730

== ENCOUNTER 2022-08-12 06:34 | Day surgery (SDC) | payer MEDICARE, BC ==
[2022-08-11 09:01] VITALS: BMI 31.4
[2022-08-12] MEDS ORDERED: Isoproterenol 0.2 MG/1 ML AMP ONE (07:29)
[2022-08-12] MEDS ORDERED: Protamine Sulfate 50 MG/5 ML VIAL ONE (07:29)
[2022-08-12] MEDS ORDERED: Heparin 25,000 units/D5W 500 ML ONE (07:29)
[2022-08-12] MEDS ORDERED: Heparin 10,000 UNITS/ 10 ML VIAL ONE ×2 (07:29→10:38)
[2022-08-12] MEDS ORDERED: Rocuronium Bromide 10 MG/ML (10ML VIAL) ONE (08:16)
[2022-08-12] MEDS ORDERED: Lidocaine 1% PF 5 ML VIAL ONE (08:16)
[2022-08-12] MEDS ORDERED: Ondansetron PF 4 MG/2 ML Vial ONE (08:16)
[2022-08-12] MEDS ORDERED: Succinylcholine Chloride 100 MG/5 ML SYRINGE FS ONE (08:16)
[2022-08-12] MEDS ORDERED: Dexamethasone 20 MG/5 ML VIAL ONE (08:16)
[2022-08-12] MEDS ORDERED: PROPOFOL 200 MG/20 ML VIAL ONE (08:16)
[2022-08-12] MEDS ORDERED: NEOSTIGMINE 3 MG/3 ML SYR 3 MG/3 ML SYRINGE ONE (08:16)
[2022-08-12] MEDS ORDERED: PHENYLEPHRINE-NS 100 MCG/ML 10 ML SYRINGE ONE (08:16)
[2022-08-12] MEDS ORDERED: Glycopyrrolate 0.2 MG/ML 5 ML SYRINGE ONE (08:16)
[2022-08-12] MEDS ORDERED: FENTANYL 50 MCG/ML 1 ML VIAL ONE (11:07)
[2022-08-12] MEDS ORDERED: Ketorolac Tromethamine 30 MG/ML VIAL IVP PRN (11:29)
[2022-08-12] MEDS ORDERED: Furosemide 40 MG TAB PO PRN (11:29)
[2022-08-12] MEDS ORDERED: Potassium Chloride 20 MEQ TAB PO PRN (11:29)
[2022-08-12] MEDS ORDERED: Sucralfate 1 GM TAB PO SCH (11:30)
== END 2022-08-12 16:20 | disposition home or self-care (01) ==
LOC: SDC 06:34
PROVIDERS: ATTEND Internal Medicine Cardiovascular Disease
PROC: B244ZZ3 Ultrasonography of Right Heart, Intravascular (ICD-10-PCS; principal; 2022-08-12)
PROC: 02583ZZ Destruction of Conduction Mechanism, Percutaneous Approach (ICD-10-PCS; 2022-08-12)
PROC: 4A023FZ Measurement of Cardiac Rhythm, Percutaneous Approach (ICD-10-PCS; 2022-08-12)
PROC: 4A0234Z Measurement of Cardiac Electrical Activity, Percutaneous Approach (ICD-10-PCS; 2022-08-12)
DX: I48.0 Paroxysmal atrial fibrillation (principal); I48.92 Unspecified atrial flutter; I11.9 Hypertensive heart disease without heart failure; I08.3 Combined rheumatic disorders of mitral, aortic and tricuspid valves; G47.33 Obstructive sleep apnea (adult) (pediatric); I42.0 Dilated cardiomyopathy; E03.9 Hypothyroidism, unspecified; Z85.3 Personal history of malignant neoplasm of breast; Z79.01 Long term (current) use of anticoagulants; Z79.82 Long term (current) use of aspirin; Z79.890 Hormone replacement therapy; Z79.899 Other long term (current) drug therapy; Z88.5 Allergy status to narcotic agent; Z88.8 Allergy status to other drugs, medicaments and biological substances; Z91.02 Food additives allergy status; Z91.040 Latex allergy status
CPT/HCPCS: 85347 ×2; 93005; 93622; 93623; 93656; J3010; C1732; C1759; C1760; C1894; J1100; J1644; J2405; J2704; J2720

== ENCOUNTER 2023-04-16 13:54 | Outpatient (CLI) | payer MEDICARE, BC | END 2023-04-16 13:55 | disposition home or self-care (01) | LOC: BICMAMMO 13:54 | PROVIDERS: ATTEND Family Medicine | DX: Z13.820 Encounter for screening for osteoporosis (principal); M85.851 Other specified disorders of bone density and structure, right thigh; M85.852 Other specified disorders of bone density and structure, left thigh | CPT/HCPCS: 77080 ==

== ENCOUNTER 2023-05-24 11:07 | Outpatient (CLI) | payer MEDICARE, BC | END 2023-05-24 11:08 | disposition home or self-care (01) | LOC: MRI 11:07 | PROVIDERS: ATTEND Neurological Surgery | DX: M54.50 Low back pain, unspecified (principal); M47.816 Spondylosis without myelopathy or radiculopathy, lumbar region | CPT/HCPCS: 72148 ==